=== PATIENT | male | born 1980 | race Two or more races ===

== ENCOUNTER 2024-03-21 19:40 | Emergency (ER) | payer OTHER ==
[~2024-03-21] VITALS: Ht 170.2 cm; Wt 86.2 kg
[2024-03-21] MEDS ORDERED: DEXAMETHASONE SODIUM PHOSPHATE 4 MG/ML VIAL IM STA (22:21)
[2024-03-21] MEDS ORDERED: KETOROLAC TROMETHAMINE 30 MG VIAL IM STA (22:21)
[2024-03-21] MEDS ORDERED: DEXAMETHASONE SODIUM PHOSPHATE 4 MG/ML VIAL ONE (22:35)
[2024-03-21] MEDS ORDERED: KETOROLAC TROMETHAMINE 30 MG VIAL ONE (22:35)
== END 2024-03-21 22:43 | disposition home or self-care (01) ==
LOC: ER 19:42
DX: R07.81 Pleurodynia (principal); R05.9 Cough, unspecified
CPT/HCPCS: 96372; 99282; J1100; J1885